=== PATIENT | male | born 1945 | race Caucasian/White ===

== ENCOUNTER → 2016-09-22 | Outpatient (CLI) | payer OTHER ==
[2016-09-22 12:35] LABS: BILIRUBIN,URINE NEGATIVE (NEG); CLARITY,URINE CLEAR (CLEAR); GLUCOSE, URINE (UA) NEGATIVE (NEG); LEUKOCYTE ESTERASE ,URINE NEGATIVE (NEG); NITRATE,URINE NEGATIVE (NEG); OCCULT BLOOD,URINE NEGATIVE (NEG); PH,URINE 6.5 (5.0-8.5); PROTEIN,URINE NEGATIVE (NEG); UROBILINOGEN,URINE 0.2 mg/dL (0.2)
[2016-09-22 12:38] LABS: BASOPHILS # (AUTO) 0.12 10*3/UL; BASOPHILS % (AUTO) 1.8 % (0-1); EOSINOPHILS % (AUTO) 5.4 % (0-8); HEMATOCRIT 50.5 % (42.0-52.0); HEMOGLOBIN 16.6 g/dL (14.0-18.0); IMM GRAN % (AUTO) 0.1 % (0-5); IMM GRAN# (AUTO) 0.01 10*3/UL; LYMPHOCYTES # (AUTO) 1.34 10*3/uL; LYMPHOCYTES % (AUTO) 19.9 % (10-50); MEAN CORPUSCULAR HEMOGLOBIN 29.2 PG (27-31); MEAN CORPUSCULAR HGB CONC 32.9 g/dL (33-37); MEAN PLATELET VOLUME 10.5 FL (7.4-12.2); MONOCYTES # (AUTO) 0.62 10*3/UL (0.3-0.8); MONOCYTES % (AUTO) 9.2 % (5-15); NEUTROPHILS # (AUTO) 4.27 10*3/UL; NEUTROPHILS % (AUTO) 63.6 % (50-80); RDW COEFFICIENT OF VARIATION 14.5 % (11.5-14.5); RED BLOOD COUNT 5.69 10^6/uL (4.70-6.10); WHITE BLOOD COUNT 6.72 10^3/uL (4.8-10.8)
[2016-09-22 12:41] LABS: URINE SAMPLE TYPE VOIDED SPECIMEN
[2016-09-22 12:42] LABS: WBC,URINE 0-1
[2016-09-22 12:48] LABS: PLATELET MORPHOLOGY COMMENT NORMAL MORPHOLOGY (NORM)
[2016-09-22 13:36] LABS: BILIRUBIN,TOTAL 0.6 mg/dL (0.3-1.2); BUN/CREATININE RATIO 14.44 (6-20); CALCIUM 9.6 mg/dL (8.7-10.7); CREATININE 0.9 mg/dL (0.70-1.50); LDL CHOLESTEROL,CALCULATED 100.8 mg/dL; POTASSIUM 4.6 meq/L (3.8-5.2); TOTAL PROTEIN 7.5 g/dL (6.1-8.0)
== END ==
LOC: MOB LAB 11:38
PROVIDERS: ATTEND Internal Medicine
DX: I10 Essential (primary) hypertension (principal); I71.9 Aortic aneurysm of unspecified site, without rupture; N40.1 Benign prostatic hyperplasia with lower urinary tract symptoms; R35.1 Nocturia; F17.210 Nicotine dependence, cigarettes, uncomplicated; Z12.5 Encounter for screening for malignant neoplasm of prostate
CPT/HCPCS: 36415; 80053; 80061; 81001; 84443; 85025; G0103

== ENCOUNTER → 2016-11-03 | Outpatient (CLI) | payer OTHER | LOC: MMPC 11:11 | PROVIDERS: ATTEND Internal Medicine | DX: I10 Essential (primary) hypertension (principal); R05 Cough; R39.11 Hesitancy of micturition; F17.210 Nicotine dependence, cigarettes, uncomplicated | CPT/HCPCS: 99213; G0463 ==

== ENCOUNTER → 2017-01-05 | Outpatient (CLI) | payer OTHER | LOC: MMPC 11:11 | PROVIDERS: ATTEND Internal Medicine | DX: I10 Essential (primary) hypertension (principal); R63.4 Abnormal weight loss; R21 Rash and other nonspecific skin eruption ==

== ENCOUNTER → 2017-01-05 | Outpatient (CLI) | payer OTHER | LOC: RAD 22:12 | PROVIDERS: ATTEND Internal Medicine | DX: I10 Essential (primary) hypertension (principal); R63.4 Abnormal weight loss; R05 Cough; R21 Rash and other nonspecific skin eruption; F17.210 Nicotine dependence, cigarettes, uncomplicated | CPT/HCPCS: 99213 ==

== ENCOUNTER → 2017-01-08 | Outpatient (CLI) | payer OTHER ==
--- NOTE | 2017-01-08 11:07 | DI ---
XR CXR 2VW PA/LAT,01/08/2017 10:22 AM: Clinical History: Unintentional weight loss. Previous Exam: None at this facility. Findings: PA and lateral views of the chest are obtained, and demonstrate clear lungs. There is mild increased interstitial markings without visible mass. The cardiomediastinum and bony thorax are normal for age. There is mild anterior wedging of the verte bral bodies of the thoracic spine. Impression: Mild increased interstitial markings otherwise unremarkable.
== END ==
LOC: MOB RAD 10:06
PROVIDERS: ATTEND Internal Medicine
DX: I10 Essential (primary) hypertension (principal); L57.0 Actinic keratosis; R63.4 Abnormal weight loss; F17.200 Nicotine dependence, unspecified, uncomplicated
CPT/HCPCS: 71020

== ENCOUNTER 2017-03-06 20:30 | Emergency (ER) | payer OTHER ==
[2017-03-06] MEDS ORDERED: ONDANSETRON 4 MG/2 ML VIAL IVP ONE (21:11)
[2017-03-06] MEDS ORDERED: Sodium Chloride 0.9% 1,000 ML PRIMARY IV ONE (21:11)
[2017-03-06 21:15] LABS: BASOPHILS # (AUTO) 0.19 10*3/UL; BASOPHILS % (AUTO) 2.3 % (0-1); EOSINOPHILS # (AUTO) 0.48 10*3/UL; EOSINOPHILS % (AUTO) 5.9 % (0-8); HEMATOCRIT 46.1 % (42.0-52.0); HEMOGLOBIN 15.7 g/dL (14.0-18.0); LYMPHOCYTES # (AUTO) 1.63 10*3/uL; MEAN CORPUSCULAR HEMOGLOBIN 31.1 PG (27-31); MEAN CORPUSCULAR HGB CONC 34.1 g/dL (33-37); MEAN CORPUSCULAR VOLUME 91.3 FL (80-90); MONOCYTES # (AUTO) 0.83 10*3/UL (0.3-0.8); MONOCYTES % (AUTO) 10.1 % (5-15); NEUTROPHILS # (AUTO) 5.05 10*3/UL; NEUTROPHILS % (AUTO) 61.6 % (50-80); RED BLOOD COUNT 5.05 10^6/uL (4.70-6.10)
--- NOTE | 2017-03-06 21:15 | PDOC ---
Abdomen/Flank HPI - General Chief Complaint: Abdomen Pain Stated Complaint: LEFT LOWER ABDOMINAL PAIN Date Seen by Provider: 03/06/17 Time Seen by Provider: 21:12 Source: POSITIVE: Patient Exam Limitations: POSITIVE: No limitations Nurse's Notes Reviewed & Considered: Yes - History of Present Illness Body Location Affected: REPORTS: Abdomen Timing: REPORTS: Constant Duration: >24 hours (two days) Severity: Mild Quality: REPORTS: Fullness, "Pain" Abdominal Pain Onset Location: REPORTS: LLQ Abdominal Pain Radiation: REPORTS: No radiation Context: REPORTS: None Modifying Factors: improves with: Nothing Associated Symptoms: REPORTS: Denies symptoms Similar Symptoms Previously: No Recent Care Received: REPORTS: Denies Any Prior Injuries Related to Current Complaint?: No - Patient Home Medications Home Medications: Home Medications Tamsulosin HCl 1 tab-cap PO DAILY #90 tab-cap 09/22/16 Losartan Potassium 1 tab PO DAILY #90 tab 01/05/17 - Patient Allergies Allergies/Adverse Reactions: Allergies Allergy/AdvReac Type Severity Reaction Status Date / Time No Known Allergies Allergy Verified 03/06/17 20:56 ROS - Limitations ROS Limitations: No Limitations Constitution: REPORTS: Denies Symptoms Cardiovascular: REPORTS: Denies Cardiac Symptoms Respiratory: REPORTS: Denies Resp Symptoms Neurological: REPORTS: Denies Neuro Symptoms Gastrointestinal: REPORTS: Abdominal Pain (LLQ fullness and pain.) Endocrine: REPORTS: Denies Symptoms Musculoskeletal: REPORTS: Denies MS Symptoms Genitourinary: REPORTS: Denies Symptoms Eyes: REPORTS: Denies Symptoms ENT: REPORTS: Denies Symptoms Skin: REPORTS: Denies Skin Symptoms Lympathic: REPORTS: Denies Lympathic Symptoms Immunologic: POSITIVE: Denies Symptoms Psychiatric: POSITIVE: Denies Psych Symptoms Abdominal/Flank Pain PE - General Appearance General Appearance: POSITIVE: Alert, Cooperative, No Acute Distress, No Evidence of Trauma - HEENT HEENT: POSITIVE: Head Inspection Nml, Eyes Inspection Nml, Ears Inspection Nml, Nose Inspection Nml, Oral/Dental Inspect. Nml, Pharynx Inspect. Nml, PERRL, EOMI - Neck Neck: POSITIVE: Normal Inspection, No Apparent Injury - Respiratory Respiratory: POSITIVE: No Respiratory Distress, Breath Sounds Normal, Chest Non- Tender - Cardiovascular Cardiovascular: POSITIVE: Regular Rate and Rhythm, Heart Sounds Normal, Equal Pulses, Strong Pulses - Chest Chest: POSITIVE: Non Tender - Abdomen Abdomen: Soft: (All Quadrants), Denies Tenderness: (All Quadrants), No Splenomegaly: (All Quadrants), No Hepatomegaly: (All Quadrants), No Guarding: ( All Quadrants), No Rebound: (All Quadrants), No Palpable Pulse: (All Quadrants) , No Palpabale Mass: (All Quadrants), No Distention: (All Quadrants), No Rigidity: (All Quadrants), Hyperactive Bowel Sounds: (All Quadrants) - Back Back: POSITIVE: Normal Inspection - Skin Skin: POSITIVE: Intact, Normal For Race, Warm, Dry, No Rash - Extremities Extremity: Non-Tender: (All Extremities), Normal ROM: (All Extremities), Normal Inspection: (All Extremities), Pelvis Stable: (All Extremities) - Neurological Neurological: POSITIVE: Oriented X3, 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, Motor Normal, Sensation Normal, 5, 6 Abdomen Progress - Results Reviewed by me Xrays/CTs/US Reviewed by me: Yes Discussed with Radiologist: Yes Lab Results Reviewed: Yes Lab Results:: Laboratory Results 03/06/17 Range/Units 21:10 WBC 8.20 (4.8-10.8) 10^3/uL RBC 5.05 (4.70-6.10) 10^6/uL Hgb 15.7 (14.0-18.0) g/dL Hct 46.1 (42.0-52.0) % MCV 91.3 H (80-90) FL MCH 31.1 H (27-31) PG MCHC 34.1 (33-37) g/dL RDW Std Deviation 48.2 (39-50) fL RDW Coeff of Amina 14.6 H (11.5-14.5) % Plt Count 244 (140-350) 10*3/uL MPV 10.0 (7.4-12.2) FL Immature Gran % (Auto) 0.2 (0-5) % Neut % (Auto) 61.6 (50-80) % Lymph % (Auto) 19.9 (10-50) % [place] % (Auto) 10.1 (5-15) % Eos % (Auto) 5.9 (0-8) % Baso % (Auto) 2.3 H (0-1) % Immature Gran # (Auto) 0.02 10*3/UL Neut # (Auto) 5.05 10*3/UL Lymph # (Auto) 1.63 10*3/uL [place] # (Auto) 0.83 H (0.3-0.8) 10*3/UL Eos # (Auto) 0.48 10*3/UL Baso # (Auto) 0.19 10*3/UL WBC Morphology Comment Normal morphology (NORM) Plt Morphology Comment Normal morphology (NORM) RBC Morph Comment Normal morphology (NORM) PT 10.7 (9.7-11.4) secs INR 1.01 (0.00-5.90) N/A Sodium 139 (135-145) meq/L Potassium 3.7 L (3.8-5.2) meq/L Chloride 104 (98-112) meq/L Carbon Dioxide 25 (23-33) meq/L Anion Gap 10 (5-20) BUN 19 (7-22) mg/dL Creatinine 1.0 (0.70-1.50) mg/dL Estimated GFR (>60 ml/min/1.73m(2)) BUN/Creatinine Ratio 19.00 (6-20) Glucose 99 (78-110) mg/dL Calculated Osmolality 289.0 (267-292) mOsm/kg Calcium 9.3 (8.7-10.7) mg/dL Magnesium 2.0 (1.6-2.4) mg/dL Total Bilirubin 0.5 (0.3-1.2) mg/dL AST 29 (21-57) IU/L ALT 25 (21-72) IU/L Alkaline Phosphatase 91 (38-126) IU/L C-Reactive Protein 0.6 (0.0-0.9) mg/dL Total Protein 7.1 (6.1-8.0) g/dL Albumin 3.9 (3.5-4.8) g/dL Globulin 3.2 (2.50-4.10) g/dL Albumin/Globulin Ratio 1.20 L (1.3-2.0) mg/g - Patient's Progress Pain Medication Addressed: POSITIVE: Not Applicable Status: POSITIVE: Improved MDM / ED Course: Patient was examined, an IV started, blood drawn and sent to the lab for studies , radiographic examinations were obtained. Findings: CT scan shows mild thickening of small bowel in the left lower quadrant. AAA repair is stable. CBC and CMP are unremarkable. Assessment: Probable enteritis. Plan: Discharge home, clear liquids, advance diet as tolerated, follow-up with primary care physician. - Consult Counseled: POSITIVE: Patient, RE: Lab Results, RE: Radiology Results, RE: DX, RE : Need for F/U Patient Care Time - Estimated PCT Patient Care Time (In Minutes): 30 Vital Signs - Recent Vital Signs Vital Signs: Vital Signs (Last 8 hours) Temp Pulse Resp BP Pulse Ox 03/06/17 20:30 98.6 F 72 18 131/92 94 - VS Reviewed Vital Signs Reviewed: Yes Discharge Clinical Impression: Abdominal pain, Enteritis Discharge Disposition: Discharged to Home Condition: Stable Patient Instructions Given at Discharge: Acute Abdominal Pain (ED), Enteritis ( ED)
[2017-03-06 21:16] LABS: PLATELET MORPHOLOGY COMMENT NORMAL MORPHOLOGY (NORM); RBC MORPHOLOGY COMMENT NORMAL MORPHOLOGY (NORM); WBC MORPHOLOGY COMMENT NORMAL MORPHOLOGY (NORM)
[2017-03-06 21:29] LABS: C-REACTIVE PROTEIN 0.6 mg/dL (0.0-0.9); CALCIUM 9.3 mg/dL (8.7-10.7); SERUM ALBUMIN 3.9 g/dL (3.5-4.8)
[2017-03-06 22:16] VITALS: RESP 18; TEMP 98.6
--- NOTE | 2017-03-06 22:56 | DI ---
HISTORY: Left lower quadrant abdominal pain. Patient has a history of abdominal aortic aneurysm rep air. COMPARISON: None available. TECHNIQUE: CT of the abdomen and pelvis was performed and submitted for interpretation. FINDINGS: The heart is within normal limits. Faint nodular groundglass opacities in the dependent p ortion of both lung bases likely reflects a definite change. Increasing spicule of these findings at the right lung base could reflect concomitant aspiration pneumonia/pneumonitis and can be correlated clinically. Abdominal aortic stent with kissing iliac stents is noted. The overall maximum diameter of the abdom inal aortic aneurysm is 5.3 cm, noting that only the 2.8 cm caliber central stented portion is opacif ied. The liver is grossly unremarkable. The spleen is within normal limits. The gallbladder is grossly u nremarkable. There is mild nonspecific intra- and extrahepatic biliary ductal dilatation without foc al obstructing lesion. The pancreas is grossly unremarkable in the main pancreatic duct is normal in caliber. There is mild nonspecific thickening of the left adrenal gland. The right adrenal gland i s unremarkable. The kidneys are within normal limits. A collection of top normal caliber loops of small bowel in the left abdomen is nonspecific, though co uld reflect enteritis as there are multiple focal areas of apparent mucosal thickening. The imaged b owel, mesentery, and omentum are unremarkable without evidence of obstruction or perforation. The ap pendix is unremarkable. There is no lymphadenopathy by size criteria. There is no ascites. No acute skeletal pathology is seen. IMPRESSION: 1. Collection of top normal caliber loops of small bowel in left abdomen with multifocal areas of george arent mucosal thickening could reflect enteritis. No evidence of bowel obstruction, perforation, or ischemia. 2. Mild intra- and extrahepatic biliary ductal dilatation, nonspecific in the absence of any obstruct ing lesion. Normal caliber main pancreatic duct. 3. Postsurgical changes related to abdominal aortic aneurysm repair, grossly unremarkable. NOTIFICATION: The above findings were phoned to Kassy Brunner in the ER Department on 03/07/2017 a t 1:12am EST.
== END 2017-03-06 23:32 | disposition home or self-care (01) ==
LOC: ER 20:30
DX: K52.9 Noninfective gastroenteritis and colitis, unspecified (principal); R10.32 Left lower quadrant pain; Z95.828 Presence of other vascular implants and grafts
CPT/HCPCS: 74177; 80053; 83735; 85025; 85610; 86140; 96361; 96374; 99283 ×2; J2405; J7030